=== PATIENT | male | born 1935 | race Caucasian/White ===

== ENCOUNTER 2016-10-13 14:59 | Inpatient (IN) | payer MEDICARE, OTHER ==
--- NOTE | ~2016-10-13 | CN ---
Consultation Report [facility] [address] [place]. [address] NAME: DEE LINDSAY : 31 STATUS : ADM IN [facility]#: [id number] AGE: 81 ADM/REG DATE : 10/13/16 MR#: [id number] REPORT SERV DATE: 10/15/16 DICTATED BY: DATE: REPORT STATUS : Draft TRANSCRIBED BY: MODL DATE: 10/15/16 DATE OF CONSULTATION: 10/15/2016 CHIEF COMPLAINT/REASON FOR CONSULT: Embolic CVA. HISTORY OF PRESENT ILLNESS: Mr. Dee Lindsay is a very pleasant 81-year-old gentleman with a past admission for multiple embolic CVA. We are asked from a cardiology standpoint to perform SELENE due to suboptimal transthoracic echocardiographic images. We are also asked to place a loop recorder to evaluate for arrhythmia. The patient had been formally on aspirin and Plavix therapy, and this was discontinued approximately one year ago. The patient occasionally takes aspirin when he remembers to take it. He denies any palpitations history, arrhythmia, chest pain. He does get short of breath when he mows the yard. He presented to the emergency department originally for dizziness and confusion when he was diagnosed with his embolic stroke. He has not had any syncopal episodes. PAST MEDICAL HISTORY: 1. History of prior CVA in 2002 time frame. 2. Hypertension. 3. Snoring. 4. Irregular heart valves per PCP. ALLERGIES: VALSARTAN CAUSE HYPOTENSION. CURRENT INPATIENT MEDICATIONS: Include: 1. Allopurinol. 2. Aspirin 325 mg p.o. daily. 3. Atorvastatin 80 mg p.o. daily. 4. Coreg 3.125 mg p.o. b.i.d. 5. Clopidogrel 75 mg p.o. daily. 6. Enoxaparin for DVT prophylaxis. 7. Famotidine. 8. Irbesartan 75 mg p.o. daily. 9. Keppra 500 mg p.o. b.i.d. 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 He has a daughter, who is present at the bedside. He does not smoke, drink, or use extracurricular drugs. FAMILY HISTORY: Significant for a father who had a CVA in his 90s. REVIEW OF SYSTEMS: All systems were reviewed and is negative, except for dictated in HPI. PHYSICAL EXAMINATION: VITAL SIGNS: Temperature 97.4, pulses ranged between 61 and 85 beats per minute, Consultation Report [address] [place]. [address] NAME: DEE LINDSAY : 31 STATUS : ADM IN [facility]#: [id number] AGE: 81 ADM/REG DATE : 10/13/16 MR#: [id number] REPORT SERV DATE: 10/15/16 DICTATED BY: DATE: REPORT STATUS : Draft TRANSCRIBED BY: MODL DATE: 10/15/16 respirations 14, oxygen saturations 95% on room air, blood pressure is 117/70. GENERAL: Mr. Lindsay is an 81-year-old gentleman, in no distress. NECK: There are bilateral carotid bruits. I could not appreciate jugular venous distention. HEART: Regular rate and rhythm. Normal S1 and S2. There is a 2/6 systolic murmur. No rubs or gallops auscultated. LUNGS: Clear to auscultation in all macario. ABDOMEN: Soft and nontender. I could not appreciate renal bruits. The abdominal aorta is not palpable. EXTREMITIES: Warm and well perfused. I could not appreciate pitting edema. MUSCULOSKELETAL: No clubbing or cyanosis of the digits. NEUROLOGIC: There is mild confusion, but otherwise I could not appreciate focal neurologic deficits. REVIEW OF TEST RECORDS/MEDICAL DECISION MAKING: Carotid ultrasound performed on 08/14/2016 demonstrated nonobstructive plaque, approximately 50% luminal stenosis. Echocardiogram was suboptimal quality, but did not show any evidence of left ventricular systolic function. The mitral valve and aortic valve were sclerotic. CT examination performed demonstrated old left frontal infarct. MRI of the brain was performed, which demonstrated multiple foci of restricted diffusion consistent with his showering of emboli. LABORATORY RESULTS: Note a potassium of 3.8, a BUN of 24, a creatinine of 1.55, hemoglobin 12.9, hematocrit 38, platelet count is 154. IMPRESSION REPORT AND PLAN: 1. 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 2. Hypertension. 3. Renal insufficiency. 4. History of prior cerebrovascular accident. I discussed the risks, benefits, and alternatives of placing a loop recorder and SELENE with the patient and his daughter at the bedside. The patient is adamant that he does not want life-prolonging therapy, but is willing to undergo these procedures if it may help his quality of life and changes management with regard to anticoagulation in the future. I think that these are reasonable procedures. I will order a SELENE for better evaluation of his intracardiac structures and a loop recorder to evaluate for cardiac arrhythmia. We would arrange for followup in my clinic in approximately three to four weeks' time. Additional recommendations pending clinical course and findings of these studies. PAMELA/JOVANI Tanvi Dyer M.D. Consultation Report [address] [place]. [address] NAME: DEE LINDSAY : 33 STATUS : ADM IN [facility]#: [id number] AGE: 81 ADM/REG DATE : 10/13/16 MR#: [id number] REPORT SERV DATE: 10/15/16 DICTATED BY: DATE: REPORT STATUS : Draft TRANSCRIBED BY: JOVANI DATE: 10/15/16 / [id number] CC: DO Marshall Hall D.O.
--- NOTE | ~2016-10-13 | TEE ---
Transesophageal Echocardiogram [facility] [address] [facility] [place]. [address] NAME: DEE MIR : 33 STATUS : ADM IN PAT#: [id number] AGE: 81 ADM/REG DATE : 10/13/16 MR#: [id number] REPORT SERV DATE: 10/16/16 DICTATED BY: JOSÉ LUIS STANFORD DATE: 10/16/16 REPORT STATUS : Draft TRANSCRIBED BY: MODL DATE: 10/16/16 REASON FOR THE PROCEDURE: This is an 81-year-old male with cryptogenic CVA for evaluation of thromboembolic etiology. Informed consent was obtained, signed on the chart prior to proceeding, a time-out was performed. Sedation was per Anesthesia, and esophageal intubation was without difficulty. TECH: TD. The overall quality of the study was good. FINDINGS: CHAMBERS: 1. The left atrium was mildly enlarged. The left atrial appendage was examined with multiple angulation. There was no thrombus identified. In sinus rhythm. Color Doppler findings were normal and spectral Doppler velocity exceeded 40 to 50 cm/second. 2. The left ventricle was normal in size with a visually estimated LVEF at the low limits of normal, 50%. There were no regional wall motion abnormalities seen. There was a sigmoid septal prominence, normal variant for age. 3. The right atrium was grossly normal in size. Superior and inferior vena cava appeared normal. There was no mass thrombus seen. 4. The right ventricle appeared normal in size and systolic function. VALVES: 1. The aortic valve morphology was trileaflet with mild sclerosis and mildly restricted leaflet mobility. There was no aortic regurgitation. 2. The mitral valve morphology was normal. Leaflets were thickened and sclerotic with adequate mobility. There was mild-moderate annular calcification. There was mild central mitral regurgitation seen. 3. The pulmonic valve was grossly normal with adequate mobility. There was no significant pulmonic regurgitation. 4. The tricuspid valve morphology was normal, but poorly visualized. The leaflets were fully mobile. There was no significant tricuspid regurgitation. OTHER: The interatrial septum was examined with multiple angulations. There was hyper- lipomatous thickening of the interatrial septal limb. Interatrial septal was otherwise intact with no evidence of interatrial shunt seen by color Doppler. There was no pericardial effusion. The descending thoracic aorta, aortic arch, and distal ascending aorta were evaluated, and there was severe complex atherosclerotic plaquing seen, particularly in the aortic arch. There was some independently mobile echo densities associated with the atherosclerosis consistent with small atheroma. There was no aneurysmal dilatation or dissection seen. COMPLICATIONS: None. CONCLUSION: Transesophageal Echocardiogram [place] [address] [place] [address] NAME: DEE MIR : 33 STATUS : ADM IN [facility]#: [id number] AGE: 81 ADM/REG DATE : 10/13/16 MR#: [id number] REPORT SERV DATE: 10/16/16 DICTATED BY: JOSÉ LUIS SATNFORD. DATE: 10/16/16 REPORT STATUS : Draft TRANSCRIBED BY: JOVANI DATE: 10/16/16 1. NO LEFT ATRIAL OR LEFT ATRIAL APPENDAGE THROMBUS. 2. AORTIC VALVE SCLEROSIS WITHOUT STENOSIS. 3. CALCIFIC MITRAL DEGENERATION WITH MILD REGURGITATION AND NO STENOSIS. 4. INTACT INTERATRIAL SEPTUM. 5. SEVERE COMPLEX ATHEROSCLEROSIS WITH TINY INDEPENDENTLY MOBILE ATHEROMA OF THE THORACIC AORTA, OUTLINED ABOVE. AEA/MODL José Luis Stanford M.D. / [id number] CC: DO Marshall Hall D.O.
--- NOTE | ~2016-10-13 | CN ---
Consultation Report [facility] [address] [place]. [address] NAME: DEE MIR : 31 STATUS : ADM IN [facility]#: [id number] AGE: 81 ADM/REG DATE : 10/13/16 MR#: [id number] REPORT SERV DATE: 10/13/16 DICTATED BY: ANGELO MENDEZ DATE: 10/13/16 REPORT STATUS : Draft TRANSCRIBED BY: MODL DATE: 10/13/16 NEUROLOGICAL CONSULTATION DATE OF CONSULTATION: 10/13/2016 LOCATION: Code Stroke in the Emergency Room. APPROXIMATE TIME: 3:45 p.m. This is a critical care visit, total time 48 minutes. HISTORY: This is an 81-year-old white male with known history of hypertension, prior history of stroke in July of last year who was brought to the emergency room with history of intermittent confusion and slurred speech. The patient's daughter who provided most of the history stated that his episode started on Thursday when she realized that the patient was having some difficulty with his speech. The patient sent an e-mail to his daughter which apparently appeared to be all "gibberish." The patient apparently got back to his baseline. On Thursday as per patient's daughter, he cried inconsolably all day. Thursday, the patient was feeling better. However, this morning four and half hours prior to admission, the patient had an episode of slurred speech, difficulty finding words, and complained of dizziness, and the patient was brought to the emergency room by his family. 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 PAST MEDICAL HISTORY: Hypertension, prior history of a stroke. The patient's daughter who provided the history is not clear whether the patient has been on any blood thinners. However, she remembers that the patient was taking aspirin and ? Plavix. There may be history of valvular disease, she is not certain what type. FAMILY HISTORY: Significant history of stroke in the patient's father's side. SOCIAL HISTORY: As mentioned above. No history of smoking or alcohol use. 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 REVIEW OF SYSTEMS: The patient has not had any recent complaints of chest pain, shortness of breath, however, has had episodes of confusion, it is not clear since Thursday or actually since the time of his stroke in July. There are no recent changes of weight. The patient's other complaints during the examination included the fact that he has not slept well in the last two days. Otherwise, he has no difficulty sleeping. The patient's daughter stated that he snores a great deal and has interrupted sleep. He has probable obstructive sleep apnea. The rest of 14-point of review of systems was negative. ALLERGIES: NO KNOWN ALLERGY. Consultation Report [address] [place]. [address] NAME: DEE MIR : 31 STATUS : ADM IN [facility]#: [id number] AGE: 81 ADM/REG DATE : 10/13/16 MR#: [id number] REPORT SERV DATE: 10/13/16 DICTATED BY: ANGELO MENDEZ DATE: 10/13/16 REPORT STATUS : Draft TRANSCRIBED BY: JOVANI DATE: 10/13/16 MEDICATIONS: As mentioned above aspirin and Plavix, antihypertensive medication. The patient have no actual information, and the patient's daughter will bring the medications from home. PHYSICAL EXAMINATION: GENERAL: The patient appeared alert, followed commands, was extremely hard of hearing. Appeared anxious. VITAL SIGNS: Blood pressure 138/70, pulse was 98, respirations 20, temperature afebrile. HEAD AND NECK: Showed head to be normocephalic. There was evidence of trauma. Auscultation of the neck showed no evidence of bruits. EYE EXAM: Sclerae were not icteric. Conjunctivae were pink. ENT EXAM: Tongue was midline. No significant enlargement. No atrophy. Airway was small. Mallampati class 3 to 4. CHEST: Symmetrical. LUNGS: Clear to auscultation. HEART: Regular S1, S2. No S3, S4, gallops were noted. ABDOMEN: Soft, nontender. No organomegaly. EXTREMITIES: Show no clubbing, cyanosis. There was no peripheral edema. Peripheral pulses were normal. SKIN: Clear. NEUROLOGICAL EXAM: Mental status exam: The patient was alert oriented to self, time, and place. His speech was fluent. There was no evidence of aphasia or dysarthria. The patient appeared anxious but his distant recent memory appeared intact. Cranial nerve examination II-XII: Visual macario on confrontation were intact. Funduscopic exam showed no evidence of papilledema, hemorrhages, or exudates. Extraocular movements were full. No nystagmus was noted. A slight gaze impersistence to the right was present. No limitation of upward or downward gaze was noted. Facial sensation, muscles of mastication, muscles of facial expression show no evidence of asymmetry or weakness. Lower cranial nerves were intact. Tongue was midline. No atrophy or fibrillations were noted. Palate elevated symmetrically. Sternocleidomastoid and trapezius muscles were symmetrical and normal. Shoulder shrug was normal. Motor Exam: Muscle bulk and tone was normal. Strength was 5/5 throughout. Deep tendon reflexes were symmetrical decreased at both ankles and both knees. Otherwise, 2/2 at legs, trace over 2 at knees, and 0/2 at ankles. Babinski signs were not elicitable. Sensory Exam: To pinprick, light touch, and vibration appeared within normal range. Cerebellar Exam: Wzgcva-ky-kict and bqag-sz-aolw appeared normal and rapid alternating movements. The patient had some difficulty performing but there was no ataxia. Gait was not tested at this time, however, as per patient's daughter, the patient had no difficulty walking. DATA: CT scan of the head showed no evidence of acute changes, however, hypodensity was Consultation Report [place] [address] [facility] [place]. [address] NAME: DEE MIR : 31 STATUS : ADM IN [facility]#: [id number] AGE: 81 ADM/REG DATE : 10/13/16 MR#: [id number] REPORT SERV DATE: 10/13/16 DICTATED BY: ANGELO MENDEZ DATE: 10/13/16 REPORT STATUS : Draft TRANSCRIBED BY: JOVANI DATE: 10/13/16 noted in the left frontal region primarily involving white matter extending to the cortical region and anterior frontal lobe. Other ischemic changes were also noted. Small microvascular changes. No midline shift. No severe enlargement of the ventricular system was noted. As per radiology report, CTA of the neck and brain was normal. LABORATORY STUDIES: Creatinine 1.6. Comprehensive metabolic studies still pending. CBC with differential pending. PT/INR pending. The patient's NIH stroke scale is 0 at this time. IMPRESSION: Recurrent transient ischemic episodes versus partial seizures secondary to the patient's previous cerebral vascular accident. The patient has increased risk of a stroke in view of recurrent episodes which apparently were more profound since Thursday and today we need to make sure the patient is monitored carefully for a stuttering stroke versus crescendo TIA for an impending stroke. Recommend regular admission to the hospital, note the observation status. MRI of the brain to be done to determine if the patient may have had small embolic strokes and to determine the extent and load of the ischemic damage. The EEG to rule out partial seizures. Continue telemetry to rule out for cardiac arrhythmia. Continue aspirin and Plavix. Continue stroke orders. Echocardiogram to evaluate the patient's ? valve problem, if needed transesophageal echo to be done. The patient would be a candidate for a loop recorder in view of his recurrent episodes of neurological deficit which may suggest recurrent cardiac arrhythmias or atrial fibrillation. Recommend not to drop the patient's blood pressure below 140 systolic range to maintain cerebral perfusion. The patient's blood pressure normally runs between 130 and 140 as per patient's daughter. P.S.; laboratory studies we were able to obtain; WBC count 11.9, hemoglobin 14.7, hematocrit 42.1, MCV 91.9, platelet count 197,000. Normal differential except for slightly increased eosinophils 1.14. Comprehensive metabolic; sodium 139, potassium 4.2, chloride 105, BUN 25, creatinine 1.58, GFR 40. Calcium 9.3, total protein 7.5, albumin 3.9, total bilirubin 0.6, albumin 3.9, ALT 15, AST 14, troponins less than 0.02. PT/INR 1. CTA and CT protocol was performed to obtain information with the patient who would be eligible for interventional treatment of stroke thrombectomy if the clot was found in the large vessel on the CTA. Recommend to follow stroke TIA orders, stroke education, and telemetry monitoring continuous. Outpatient polysomnography study to rule out obstructive sleep apnea. Continue statin and aspirin, lipid panel as per TIA and stroke orders. Thank you for allowing us to participate in this patient's care. Consultation Report [place] [address] [place]. [address] NAME: DEE MIR : 31 STATUS : ADM IN [facility]#: [id number] AGE: 81 ADM/REG DATE : 10/13/16 MR#: [id number] REPORT SERV DATE: 10/13/16 DICTATED BY: ANGELO MENDEZ DATE: 10/13/16 REPORT STATUS : Draft TRANSCRIBED BY: JOVANI DATE: 10/13/16 This was a critical care visit; 55 minutes total time. CAMILA/JOVANI Angelo Mendez MD / [id number] CC: Carl Moss D.O.
--- NOTE | ~2016-10-13 | HP ---
History And Physical [id number] [place]. [address] NAME: DEE MIR : 33 STATUS : ADM IN [facility]#: [id number] AGE: 81 ADM/REG DATE : 10/13/16 MR#: [id number] REPORT SERV DATE: 10/13/16 DICTATED BY: LULÚ LOUISE DATE: 10/13/16 REPORT STATUS : Draft TRANSCRIBED BY: MODL DATE: 10/13/16 DATE OF ADMISSION: 10/13/2016 CHIEF COMPLAINT: Possible stroke. HISTORY OF PRESENT ILLNESS: Obtained from the patient as well as emergency room documents, also prior medical records available to us, were thoroughly reviewed. According to the information available, the patient is a pleasant 81-year-old white man with known history of prior CVA, TIA, brought into the emergency room by family because of confusion and possible stroke. According to the patient's family, they noticed that for about three days, he started to get little confused, unable to speak clearly and say numbers, his symptoms got better. Yesterday, he started feeling weak, generalized, some dizziness. No fever or chills. No chest pain or palpitations reported. Today around 11:00 a.m., started having confusion again when he was trying to type his e-mail, he could not get the typing right. He obviously looked like he is forgetful and slightly confused and off as per family. No slurred speech today. In the emergency room, the patient was evaluated, and "the stroke was cold" and Neurology has come and seen the patient in the emergency room. After discussion with the patient apparently, the patient refused the tPA, which according to our medical records happened during his prior admission in 2014, when he was diagnosed with acute stroke as well. The patient's condition has stabilized. His mental status is improved, even though he has not returned to baseline, and CTA of the neck and brain with stroke protocol failed to show acute stenosis or an acute CVA. Therefore, the patient is going to be admitted on the Hospitalist Service under Neurology consultation to the Stroke Unit as per protocol. Note that, already the Neurology has seen and evaluated the patient in the emergency room, and the Neurology consult has filled in and signed "stroke admission orders for non tPA". PAST MEDICAL HISTORY: Significant for cerebrovascular disease, status post prior CVA and TIA. Last admission in 2014, when the patient was admitted with acute stroke, history of hypertension, history of prior cerebrovascular disease, prior TIAs, history of likely chronic kidney disease uncertain exactly baseline, history of hyperlipidemia, history of gout, history of osteoarthritis, osteoporosis, and deconditioning. PAST SURGICAL HISTORY: Significant for hernia repair in the remote. SOCIAL HISTORY: The patient denies tobacco abuse, alcohol abuse, illicit or recreational drug abuse. Lives with family. FAMILY HISTORY: Significant for CVAs and TIA. Significant for hypertension. ALLERGIES: ALLERGIC TO "VALSARTAN", UNCERTAIN EXACTLY THE TYPE OF ALLERGY. HOME MEDICATIONS: According the list provided, the patient is supposed to take allopurinol 300 mg p.o. daily, Coreg 3.125 mg p.o. b.i.d., Avapro 150 mg p.o. daily, and Zaroxolyn 5 mg p.o. on Thursday, Thursday, and Thursday. Note that the patient also supposed to take aspirin and Plavix according to the discharge summary from last admission, but apparently has been History And Physical [address] [address] NAME: DEE MIR : 33 STATUS : ADM IN [facility]#: [id number] AGE: 81 ADM/REG DATE : 10/13/16 MR#: [id number] REPORT SERV DATE: 10/13/16 DICTATED BY: LULÚ LOUISE DATE: 10/13/16 REPORT STATUS : Draft TRANSCRIBED BY: JOVANI DATE: 10/13/16 discontinued since. REVIEW OF SYSTEMS: As per H and P, otherwise negative in all review of systems. Please note, the comprehensive review of system was obtained and pertinent positives were included in the H and P. PHYSICAL EXAMINATION: GENERAL: Pleasant, cooperant, with no particular acute distress. VITAL SIGNS: Upon arrival in the emergency room, blood pressure of 151/86, pulse 70, respiratory rate 18, temperature 98.3, oxygen saturation 97% in room air. HEENT: Bilateral cataracts. Extraocular movements intact. Throat, mild erythema. No exudate. No signs of tenderness. Atraumatic and normocephalic. NECK: Supple. No JVD. No bruits. No thyromegaly. No lymph nodes. LUNGS: Bilateral air entry with few dry bibasilar crackles bilaterally, no wheezing no rales. Good airway movement. HEART: Positive S1, S2. Regular rate and rhythm. Positive mitral regurgitation. Murmur at the apex. Positive aortic sclerosis murmur. No rub. No gallop. PMI not displaced by palpation. ABDOMEN: Positive bowel sounds. Soft, nontender, no guarding, no hepatosplenomegaly. EXTREMITIES: With decreased range of motion. Osteoarthritic changes. No clubbing, no cyanosis, no edema. +2 pulses bilaterally. No calf tenderness. NEUROLOGIC: Alert and oriented x3. Seems slightly confused with loss of recent memory. No slurred speech. Grossly nonfocal. Otherwise, cranial nerves 2 through 12 grossly intact. Motor strength 5/5 symmetrical bilateral with deep tendon reflexes 2/2 symmetrical bilateral. Babinski is negative bilaterally. Mild ataxia and mild incoordination, but uncertain if close to his baseline. No pronator drift noticed. BACK: With decreased range of motion. No focal localized tenderness. No CVA tenderness. SKIN: No bruises, no rashes, no lacerations. SIGNIFICANT LABORATORY DATA: Chest x-ray (personal reading) showed no acute infiltrate. EKG (personal reading) showed normal sinus rhythm at beats per minute. No acute ST elevation, basically a normal EKG. White cell count 11.9, hemoglobin 14.7, platelet count 197. INR 1.0. Sodium 139, potassium 4.2, chloride 105, bicarb 28, BUN 25, creatinine 1.58, glucose 104. Liver function tests within normal limits. Troponin I less than 0.02. CT scan of the head/brain with stroke protocol from preliminary report from emergency room showed no evidence of acute intracranial pathology, microangiopathy, and old mid left frontal infarct (full report attached to chart and discussed with the patient and family). CTA of the neck and brain with stroke protocol showed fair main left frontal infarct, one newer since 2015 imaging within normal limits. CT angiogram of the brain without vessel occlusion or significant stenosis (full report attached to chart and discussed with the patient and family). ASSESSMENT AND PLAN AND PROBLEM LIST: The patient is a pleasant 81-year-old white man admitted with symptoms suggesting acute cerebrovascular accident, confusion, refusing tPA, seen and evaluated already by Neurology. History And Physical [address] [facility]. [address] NAME: DEE MIR : 31 STATUS : ADM IN PAT#: [id number] AGE: 81 ADM/REG DATE : 10/13/16 MR#: [id number] REPORT SERV DATE: 10/13/16 DICTATED BY: LULÚ LOUISE DATE: 10/13/16 REPORT STATUS : Draft TRANSCRIBED BY: MODFrankie DATE: 10/13/16 IMPRESSION: 1. Neurologic problem:. a. Acute cerebrovascular accident (likely). b. Seizure disorder (possible subclinical seizures). c. Cerebrovascular disease, status post prior CVA and transient ischemic attacks. d. Confusion and altered mental status, presently improving. For all the above, the patient has been admitted on the Hospitalist Service on the Stroke Unit/Telemetry with scheduled neurologic checks and as per Neurology consultation, we are going to use double platelet therapy with aspirin and Plavix as well as high-intensity statin with Lipitor. Continue further stroke workup and evaluation including MRI, including 2D echo. Obtain physical therapy, occupational therapy, and speech and swallow evaluation. Blood pressure management with stroke protocol. Check vitamin B12, folate, and TSH as correction would greatly improve his quality of life. We are going to check also magnesium, which was quite low during his previous admission, and apparently not on any regular replacement at this moment. 1. Acute kidney injury, but is a likely elevated chronic kidney injury with baseline. We are going to monitor BUN and creatinine, monitor urinary output. 2. Hypertension, essential, continue Avapro as per home dose and schedule, with "holding parameters.". 3. Leukocytosis, likely reactive, no overt/obvious clinical significant infectious process at this moment. We are going to check urinalysis for completeness. Continue to monitor white cell count. 4. Endocrinologic problem:. a. Hyperlipidemia, mixed-type, low cholesterol diet, the patient was started/continue on Lipitor 80 mg p.o. at bedtime. b. Gout, continue medications. 5. Osteoarthritis, osteoporosis, deconditioning, and debilitation as above. Obtain physical therapy evaluation. Provide adequate pain control. PROGNOSIS: Moderately good for this admission. Discussed with patient and questions were answered in full. Please note, also the written H and P, and written orders and instructions. Please note that the patient has been already evaluated and admission orders were initiated by Neurology consult. Please note also the written H and P and written orders and instructions. Please note, the patient is a full code at this moment as discussed at bedside. RF/MODL Lulú Louise M.D. / [id number] History And Physical [address] [address] NAME: DEE MIR : 31 STATUS : ADM IN PAT#: [id number] AGE: 81 ADM/REG DATE : 10/13/16 MR#: [id number] REPORT SERV DATE: 10/13/16 DICTATED BY: LULÚ LOUISE ION DATE: 10/13/16 REPORT STATUS : Draft TRANSCRIBED BY: MODL DATE: 10/13/16 CC: Carl Moss D.O.
--- NOTE | ~2016-10-13 | DS ---
Discharge Summary [facility] [address] [place]. [address] NAME: DEE MIR : 31 STATUS : DIS IN PAT#: [id number] AGE: 81 ADM/REG DATE : 10/13/16 MR#: [id number] REPORT SERV DATE: 10/18/16 DICTATED BY: CHARI ESTRELLA DATE: 10/17/16 REPORT STATUS : Draft TRANSCRIBED BY: MODL DATE: 10/17/16 ADMISSION DATE: 10/13/2016 DISCHARGE DATE: 10/17/2016 HOSPITAL COURSE: This is an 81-year-old male, who is very nice, very pleasant individual with known history of prior stroke, TIA, hypertension, CKD, history of gout, osteoarthritis, and osteoporosis. The patient came in with confusion, unable to speak clearly or say numbers with increased generalized weakness. He typed out gibberish on e-mail. In the emergency department, Neurology talked to the patient. The patient refused tPA. His mental status had improved by the time he was in the ER. As a result, MRI had showed multiple foci of restricted diffusion in supra and infratentorial compartment most consistent with showering of emboli. The patient had a CTA of the neck and brain. Pyramid left frontal infarcts more cephalad of which new since 2015, likely chronic. Mild stenosis involving multiple points of proximal right subclavian, left subclavian, and tortuous course innominate. Moderate mixed calcified and noncalcified plaque carotids. As a result, had a carotid ultrasound, which showed 50% luminal stenosis. Right vertebral antegrade subclavian 55 cm/second. Left vertebral antegrade subclavian 4 cm/second. As a result of my high concern for atrial fibrillation, we had a transthoracic echo, poorly visualized windows. As a result of high concern for possible atheroma, we did a transesophageal echo, which showed no left atrial appendage thrombus. Did show severe complex atherosclerosis. Tiny independent mobile atheromas, thoracic aorta. Aortic valve sclerosis. No stenosis. Calcified mitral degeneration with mild MR. No stenosis. The patient was seen by Neurology, who agreed with the plan. Also, we had ordered a loop recorder. The patient did not have any tachyarrhythmia except PVCs on our telemetry here for least two days. Given his history of epilepsy, he was placed on Keppra. The patient is amenable for discharge. We will need high-intensity statin with aspirin and Plavix. Follow up with Cardiology as well. DISPOSITION: Discharged home with Home Health. PT is in agreement. FOLLOWUP: Follow up with Neurology as well in four to six weeks. Vascular Surgery for subclavian stenosis in four to twelve weeks. Follow up with Nephrology for CKD 3. Could consider possible ARB as an outpatient; however, with CAD equivalent stroke, beta- blockers often have the best mortality reduction. Would prefer to have creatinine trended out to baseline before starting on ARB or supplanting an ARB from a beta-em. The patient is amenable for discharge. Educated on 2 g sodium restricted diet and half of his caloric intake being vegetables. DISCHARGE MEDICATIONS: Allopurinol 300 p.o. daily, aspirin 325 p.o. daily, as well as Lipitor 80 p.o. daily, as well as carvedilol 3.125 p.o. b.i.d. hold for systolic less than 110, Plavix 75 p.o. daily, Keppra 500 p.o. b.i.d. Discharge Summary [address] [address] NAME: DEE MIR : 31 STATUS : DIS IN PAT#: [id number] AGE: 81 ADM/REG DATE : 10/13/16 MR#: [id number] REPORT SERV DATE: 10/18/16 DICTATED BY: CHARI ESTRELLA DATE: 10/17/16 REPORT STATUS : Draft TRANSCRIBED BY: JOVANI DATE: 10/17/16 CONSULTS: Cardiology and Neurology. All questions were answered. It took well over 30 minutes to do. PROCEDURES: Loop recorder. SELENE. WST/MODL Chari Estrella DO / [id number] CC: DO Marshall Hall D.O.
[~2016-10-13 14:59] MED LIST: ALLOPURINOL PO; ASABAYER PO; AVAP150 PO; BP MEDICATION PO; LIPITOR PO; LIPITOR10 PO; NYQUIL PO; PLAVIX PO; SALONPAS-HOT TOP; UNKNOWN MEDICATION PO; Z300 PO; Z5 PO
[2016-10-13 15:34] LABS: BASOPHILS 0.5 %; BASOPHILS ABSOLUTE 0.06 10/3/uL (0.0-0.16); EOSINOPHILS 9.6 %; EOSINOPHILS ABSOLUTE 1.14 10/3/uL (0.0-0.53); HEMATOCRIT 42.1 % (40.0-51.0); HEMOGLOBIN 14.7 g/dL (13.6-17.8); IMMATURE GRANULOCYTES 0.3 %; IMMATURE GRANULOCYTES ABSOLUTE 0.04 10/3/uL (0.0-0.11); LYMPHOCYTES 22.9 %; LYMPHOCYTES ABSOLUTE 2.72 10/3/uL (0.67-4.30); MEAN CORPUS HGB CONC 34.9 g/dL (32.0-36.0); MEAN CORPUSCULAR HEMOGLOB 32.1 pg (26.0-34.0); MEAN PLATELET VOLUME 9.5 fL (9.2-13.0); MONOCYTES 6.4 %; MONOCYTES ABSOLUTE 0.76 10/3/uL (0.21-1.20); NEUTROPHILS 60.3 %; NEUTROPHILS ABSOLUTE 7.14 10/3/uL (2.02-8.40); PLATELET COUNT 197 10/3/uL (150-400); RED CELL COUNT 4.58 10/6/uL (4.7-6.1); WHITE BLOOD CELLS 11.9 10/3/uL (4.5-10.5)
[2016-10-13 15:35] LABS: MANUAL DIFF NO %; MEAN CORPUSCULAR VOLUME 91.9 fL (80-100)
[2016-10-13 15:46] LABS: PARTIAL THROMBO TIME 31.5 SEC (22.5-37.2); PROTIME (NOT ORD) 13.4 SEC (12.0-14.5)
[2016-10-13] MEDS ORDERED: COREG3 PO (15:47)
[2016-10-13 15:49] LABS: A/G RATIO 1.1 (0.7-1.9); ALBUMIN 3.9 G/DL (3.5-5.0); BUN (BLOOD UREA NITROGEN) 25 MG/DL (6-23); CALCIUM, SERUM 9.3 MG/DL (8.5-10.4); CHLORIDE, SERUM 105 MMOL/L (96-112); CO2 (CARBON DIOXIDE) 28 MMOL/L (24-34); CREATININE 1.58 MG/DL (0.70-1.30); GFR AFRICAN AMERICAN 46 ML/MIN (>=60); GFR NON AFRICAN AMERICAN 40 ML/MIN (>=60); GLOBULIN 3.6 G/DL (2.5-4.1); GLUCOSE, SERUM 104 MG/DL (60-99); POTASSIUM, SERUM 4.2 MMOL/L (3.5-5.3); SGOT(AST) 14 U/L (5-40); SGPT(ALT) 15 U/L (5-65); SODIUM, SERUM 139 MMOL/L (135-148); TOTAL BILIRUBIN 0.6 MG/DL (0-1.2); TOTAL PROTEIN 7.5 G/DL (6.0-8.5); TROPONIN I <0.02 NG/ML (<0.05)
[2016-10-13 15:51] LABS: ALKALINE PHOSPHATASE 123 U/L (45-117)
[2016-10-13 19:43] LABS: PROCALCITONIN <0.05 ng/mL (<0.5)
[2016-10-13 20:22] LABS: CHOL/HDL RATIO(NOT ORDER) 4.8 (0-5); CHOLESTEROL 201 MG/DL (< 200); FOLATE 9.9 NG/ML (>5.2); HDL CHOLESTEROL 42 MG/DL (> 39); LDL CHOLESTEROL 135 MG/DL (< 130); NON-HDL CHOLESTEROL 159 MG/DL (< 160); PHOSPHORUS, SERUM 3.1 MG/DL (2.5-4.5); TRIGLYCERIDE 120 MG/DL (< 150)
[2016-10-14 00:34] LABS: CPK 96 U/L (0-200); TROPONIN I <0.02 NG/ML (<0.05)
[2016-10-14 00:35] LABS: CK-MB 2.4 NG/ML
[2016-10-14 05:20] LABS: BASOPHILS 0.4 %; BASOPHILS ABSOLUTE 0.03 10/3/uL (0.0-0.16); EOSINOPHILS 11.2 %; EOSINOPHILS ABSOLUTE 0.85 10/3/uL (0.0-0.53); HEMOGLOBIN 12.9 g/dL (13.6-17.8); IMMATURE GRANULOCYTES 0.4 %; IMMATURE GRANULOCYTES ABSOLUTE 0.03 10/3/uL (0.0-0.11); LYMPHOCYTES 31.7 %; MEAN CORPUS HGB CONC 33.9 g/dL (32.0-36.0); MEAN CORPUSCULAR HEMOGLOB 31.6 pg (26.0-34.0); MEAN CORPUSCULAR VOLUME 93.1 fL (80-100); MEAN PLATELET VOLUME 9.9 fL (9.2-13.0); MONOCYTES 9.8 %; MONOCYTES ABSOLUTE 0.74 10/3/uL (0.21-1.20); NEUTROPHILS 46.5 %; NEUTROPHILS ABSOLUTE 3.53 10/3/uL (2.02-8.40); PLATELET COUNT 154 10/3/uL (150-400); RBC DISTRIBUTION WIDTH 13.8 % (12.0-16.0); RED CELL COUNT 4.08 10/6/uL (4.7-6.1); WHITE BLOOD CELLS 7.6 10/3/uL (4.5-10.5)
[2016-10-14 05:21] LABS: MANUAL DIFF NO %
[2016-10-14 05:27] LABS: BUN (BLOOD UREA NITROGEN) 24 MG/DL (6-23); CHLORIDE, SERUM 109 MMOL/L (96-112); CO2 (CARBON DIOXIDE) 26 MMOL/L (24-34); CREATININE 1.55 MG/DL (0.70-1.30); GFR AFRICAN AMERICAN 47 ML/MIN (>=60); GFR NON AFRICAN AMERICAN 41 ML/MIN (>=60); GLUCOSE, SERUM 111 MG/DL (60-99); PHOSPHORUS, SERUM 3.5 MG/DL (2.5-4.5); POTASSIUM, SERUM 3.8 MMOL/L (3.5-5.3); SODIUM, SERUM 142 MMOL/L (135-148)
[2016-10-14 05:30] LABS: CALCIUM, SERUM 8.3 MG/DL (8.5-10.4)
[2016-10-14 07:50] LABS: ASCORBIC ACID (UR NOT ORDER) NEG (NEG); BILIRUBIN, URINE NEGATIVE (NEG); KETONE, URINE NEGATIVE (NEG); LEUKOCYTE ESTERASE(NOT OR NEG (NEG); WBC (NOT ORDERED) (RFLEX) < 1 (0-5)
[2016-10-14 07:56] LABS: CK-MB 1.9 NG/ML; CPK 97 U/L (0-200); TROPONIN I <0.02 NG/ML (<0.05)
[2016-10-14 14:13] LABS: T4 (THYROXINE) TOTAL 6.4 MCG/DL (4.5-12.0)
[2016-10-14 20:27] LABS: CREATININE 1.6 MG/DL (0.70-1.30)
[2016-10-16 04:45] LABS: BASOPHILS 0.4 %; BASOPHILS ABSOLUTE 0.03 10/3/uL (0.0-0.16); EOSINOPHILS 10.5 %; EOSINOPHILS ABSOLUTE 0.81 10/3/uL (0.0-0.53); HEMATOCRIT 39.6 % (40.0-51.0); HEMOGLOBIN 13.7 g/dL (13.6-17.8); IMMATURE GRANULOCYTES 0.3 %; IMMATURE GRANULOCYTES ABSOLUTE 0.02 10/3/uL (0.0-0.11); LYMPHOCYTES 23.7 %; LYMPHOCYTES ABSOLUTE 1.83 10/3/uL (0.67-4.30); MANUAL DIFF NO %; MEAN CORPUS HGB CONC 34.6 g/dL (32.0-36.0); MEAN CORPUSCULAR HEMOGLOB 31.9 pg (26.0-34.0); MEAN CORPUSCULAR VOLUME 92.3 fL (80-100); MONOCYTES 8.7 %; MONOCYTES ABSOLUTE 0.67 10/3/uL (0.21-1.20); NEUTROPHILS 56.4 %; NEUTROPHILS ABSOLUTE 4.37 10/3/uL (2.02-8.40); PLATELET COUNT 158 10/3/uL (150-400); RBC DISTRIBUTION WIDTH 13.8 % (12.0-16.0); RED CELL COUNT 4.29 10/6/uL (4.7-6.1); WHITE BLOOD CELLS 7.7 10/3/uL (4.5-10.5)
[2016-10-16 05:04] LABS: BUN (BLOOD UREA NITROGEN) 26 MG/DL (6-23); CALCIUM, SERUM 8.8 MG/DL (8.5-10.4); CHLORIDE, SERUM 107 MMOL/L (96-112); CO2 (CARBON DIOXIDE) 26 MMOL/L (24-34); CREATININE 1.57 MG/DL (0.70-1.30); GFR AFRICAN AMERICAN 47 ML/MIN (>=60); GFR NON AFRICAN AMERICAN 40 ML/MIN (>=60); GLUCOSE, SERUM 95 MG/DL (60-99); SODIUM, SERUM 140 MMOL/L (135-148)
[2016-10-17] MEDS ORDERED: ASAEC PO (11:03)
[2016-10-17] MEDS ORDERED: COREG3 PO (11:04)
[2016-10-17] MEDS ORDERED: LIPITOR80 MG PO (11:04)
[2016-10-17] MEDS ORDERED: KEPPRA500 PO (11:05)
[2016-10-17] MEDS ORDERED: PLAVIX PO (11:05)
[2016-10-17] MEDS ORDERED: ULTRAM50 PO (11:09)
== END 2016-10-17 12:14 | disposition home health service (06) | DRG 40 ==
LOC: ER 14:59 → 1SO 17:29
PROVIDERS: Hospitalist; Internal Medicine
PROC: 0JH632Z Insertion of Monitoring Device into Chest Subcutaneous Tissue and Fascia, Percutaneous Approach (ICD-10-PCS; principal; 2016-10-16)
PROC: B246ZZ4 Ultrasonography of Right and Left Heart, Transesophageal (ICD-10-PCS; 2016-10-16)
DX: I63.233 Cerebral infarction due to unspecified occlusion or stenosis of bilateral carotid arteries (principal); G93.40 Encephalopathy, unspecified; N17.9 Acute kidney failure, unspecified; G40.909 Epilepsy, unspecified, not intractable, without status epilepticus; I34.0 Nonrheumatic mitral (valve) insufficiency; I12.9 Hypertensive chronic kidney disease with stage 1 through stage 4 chronic kidney disease, or unspecified chronic kidney disease; N18.9 Chronic kidney disease, unspecified; E78.2 Mixed hyperlipidemia; M10.9 Gout, unspecified; R47.01 Aphasia; M81.0 Age-related osteoporosis without current pathological fracture; I35.8 Other nonrheumatic aortic valve disorders; M19.90 Unspecified osteoarthritis, unspecified site; Z79.82 Long term (current) use of aspirin; Z79.02 Long term (current) use of antithrombotics/antiplatelets; Z91.14 Patient's other noncompliance with medication regimen; Z79.899 Other long term (current) drug therapy; Z86.73 Personal history of transient ischemic attack (TIA), and cerebral infarction without residual deficits; Z88.8 Allergy status to other drugs, medicaments and biological substances
CPT/HCPCS: 33282; 36415; 70450; 70496; 70498; 70551-52; 71010; 80048; 80053; 80061; 80069; 81001; 82140; 82550; 82553; 82607; 82746; 82962; 83036; 83735; 83880; 84100; 84145; 84436; 84439; 84443; 84484; 85025; 85610; 85730; 86850; 86900; 86901; 92523-GN; 92610-GN; 93005; 93312; 93320; 93325; 93880; 97161-GP; 97165-GO; 99285; A9270-GY; C1764; C8929; G8978-CH-GP; G8979-CH-GP; G8980-CH-GP; G8987-CH-GO; G8988-CH-GO; G8989-CH-GO; G8996-CI-GN; G8997-CI-GN; G8998-CI-GN; J0690; J1953; J2250; J3010; Q9957; Q9967